=== PATIENT | female | born 1960 | race Hispanic/Latino ===

== ENCOUNTER 2018-08-14 14:44 | Emergency (ER) | payer SELFPAY | END 2018-08-14 16:03 | disposition home or self-care (01) | LOC: EDH 14:44 | DX: S92.501A Displaced unspecified fracture of right lesser toe(s), initial encounter for closed fracture (principal); Z87.891 Personal history of nicotine dependence; X58.XXXA Exposure to other specified factors, initial encounter; Y93.89 Activity, other specified; Y92.89 Other specified places as the place of occurrence of the external cause; Y99.8 Other external cause status | CPT/HCPCS: 73630 ==

== ENCOUNTER 2020-11-08 00:15 | Emergency (ER) | payer OTHER, SELFPAY ==
[~2020-11-08] VITALS: Ht 160 cm; Wt 73.0 kg
[2020-11-08 00:44] VITALS: BP 134/78
[2020-11-08 02:11] LABS: BASOPHILS % (AUTO) 0.3 % (0.0-5.0); EOSINOPHILS % (AUTO) 0.9 % (0.0-8.0); HEMATOCRIT 41.8 % (36-48); LYMPHOCYTES % (AUTO) 5.2 % (21.0-51.0); MEAN CORPUSCULAR HEMOGLOBIN 31.9 pg (27.0-33.0); MEAN CORPUSCULAR HGB CONC 34.7 g/dL (32.0-36.0); MEAN CORPUSCULAR VOLUME 92.1 fL (79-99); MONOCYTES % (AUTO) 4.5 % (3.0-13.0); NEUTROPHILS % (AUTO) 88.8 % (40.0-77.0); PLATELET COUNT (AUTO) 114 K/uL (130-400); RED BLOOD CELL COUNT(AUTO) 4.54 MIL/uL (4.00-5.50); RED CELL DISTRIBUTION WIDTH 12.1 % (11.0-15.5); WHITE BLOOD COUNT (AUTO) 7.6 K/uL (4.8-10.8)
[2020-11-08 02:11] LABS: APPEARANCE,URINE Clear (CLEAR); BILIRUBIN,URINE Negative (NEGATIVE); COLOR,URINE Yellow (YELLOW); GLUCOSE, URINE (UA) Negative (NEGATIVE); KETONES,URINE Negative (NEGATIVE); LEUKOCYTE ESTERASE ,URINE Moderate (NEGATIVE); NITRATE,URINE Negative (NEGATIVE); OCCULT BLOOD,URINE Negative (NEGATIVE); PROTEIN,URINE Negative (NEGATIVE); UROBILINOGEN,URINE 0.2 mg/dL (0.2-1.0)
[2020-11-08 02:14] LABS: CREATININE 0.8 mg/dL (0.5-1.5); POTASSIUM 4.5 mmol/L (3.5-5.1)
[2020-11-08 02:25] LABS: BACTERIA,URINE Few /HPF (None Seen); MUCUS,URINE Rare LPF (None Seen); RBC,URINE 0-1 /HPF (0-1)
[2020-11-08] MEDS ORDERED: ONDANSETRON HCL 4 MG/2 ML VIAL IVP SCH (03:00)
[2020-11-08] MEDS ORDERED: METOCLOPRAMIDE 10 MG/2 ML VIAL IVP SCH (03:00)
[2020-11-08] MEDS ORDERED: KETOROLAC 30MG VIAL (30MG/ML) IV SCH (03:00)
[2020-11-08] MEDS ORDERED: SODIUM CHLORIDE 0.9% 1000ML 1,000 ML IV ONE ×3 (03:00→03:42)
[2020-11-08 03:06] VITALS: BP 138/63
[2020-11-08] MEDS ORDERED: METOCLOPRAMIDE 10 MG/2 ML VIAL ONE (03:43)
[2020-11-08] MEDS ORDERED: ONDANSETRON HCL 4 MG/2 ML VIAL ONE (03:43)
[2020-11-08] MEDS ORDERED: HYOSCYAMINE SULFATE 0.125 MG TAB.SUBL SL SCH (04:45)
[2020-11-08] MEDS ORDERED: CEFTRIAXONE SODIUM 1 GM IVP SCH (04:45)
[2020-11-08] MEDS ORDERED: CEFTRIAXONE SODIUM 1 GM ONE (05:18)
[2020-11-08] MEDS ORDERED: HYOSCYAMINE SULFATE 0.125 MG TAB.SUBL SL ONE (05:19)
[2020-11-08 05:33] VITALS: BP 129/72
[2020-11-08] MEDS ORDERED: METO10TA41 PO (05:58)
[2020-11-08] MEDS ORDERED: CIPR-279 PO (05:58)
[2020-11-08] MEDS ORDERED: ONDA4TAB10 PO (05:58)
[2020-11-08] MEDS ORDERED: HYOS0.124 SL (05:58)
== END 2020-11-08 05:59 | disposition home or self-care (01) ==
LOC: EDH 00:15
DX: E86.0 Dehydration (principal); R19.7 Diarrhea, unspecified; R82.71 Bacteriuria; R51.9 Headache, unspecified; R50.9 Fever, unspecified; E78.5 Hyperlipidemia, unspecified; Z20.822 Contact with and (suspected) exposure to COVID-19; Z79.899 Other long term (current) drug therapy
CPT/HCPCS: 36415; 80048; 81001; 84484; 85025; 87088; 87635; 87804 ×2; 96374; 96375; 99284; C9803; J0696; J2405; J2765; J7030

== ENCOUNTER 2022-02-26 20:25 | Emergency (ER) | payer OTHER, BC ==
[~2022-02-26] VITALS: Ht 160 cm; Wt 71.2 kg
[~2022-02-26 20:25] MED LIST: CIPR-279 PO; HYOS0.124 SL; METO10TA41 PO; ONDA4TAB10 PO
[2022-02-26] MEDS ORDERED: KETOROLAC 60 MG VIAL (30MG/ML) IM ONE (21:30)
[2022-02-26] MEDS ORDERED: CYCLOBENZAPRINE HCL 10 MG TABLET PO ONE (21:30)
[2022-02-26] MEDS ORDERED: HYDROCODONE/ACETAMINOPHEN 5/325 MG TAB PO ONE (21:30)
[2022-02-26 21:49] VITALS: BP 153/75
[2022-02-26] MEDS ORDERED: NAPR-1180 PO (22:00)
[2022-02-26] MEDS ORDERED: CYCL10TA16 PO (22:00)
== END 2022-02-26 22:24 | disposition home or self-care (01) ==
LOC: EDH 20:25
DX: S16.1XXA Strain of muscle, fascia and tendon at neck level, initial encounter (principal); S29.012A Strain of muscle and tendon of back wall of thorax, initial encounter; S39.012A Strain of muscle, fascia and tendon of lower back, initial encounter; E11.9 Type 2 diabetes mellitus without complications; E78.00 Pure hypercholesterolemia, unspecified; Z79.899 Other long term (current) drug therapy; V49.49XA Driver injured in collision with other motor vehicles in traffic accident, initial encounter; Y93.89 Activity, other specified; Y92.413 State road as the place of occurrence of the external cause; Y99.8 Other external cause status
CPT/HCPCS: 99284; 72125; 71250; 74176; 96372; J1885

== ENCOUNTER 2023-06-11 11:04 | Emergency (ER) | payer BC, OTHER ==
[~2023-06-11] VITALS: Ht 160 cm; Wt 70.8 kg
[~2023-06-11 11:04] MED LIST changes: +CYCL10TA16 PO; +NAPR-1180 PO
[2023-06-11 11:11] VITALS: BP 167/99; PULSE 75; RESP 16
[2023-06-11] MEDS ORDERED: FAMOTIDINE 20MG TAB PO ONE (13:30)
[2023-06-11] MEDS ORDERED: SOLU-MEDROL 40MG VIAL IM ONE (13:30)
[2023-06-11] MEDS ORDERED: DiphenhydrAMINE HCL 50 MG/ML VIAL IM ONE (13:30)
[2023-06-11] MEDS ORDERED: LORA10TA7 PO (14:34)
== END 2023-06-11 14:42 | disposition home or self-care (01) ==
LOC: EDH 11:04
DX: T78.49XA Other allergy, initial encounter (principal); E11.9 Type 2 diabetes mellitus without complications; E78.00 Pure hypercholesterolemia, unspecified; Z79.899 Other long term (current) drug therapy; Z98.890 Other specified postprocedural states; X58.XXXA Exposure to other specified factors, initial encounter
CPT/HCPCS: 99284; 96372 ×2; J1200; J2920